=== PATIENT | male | born 1980 | race Caucasian/White ===

== ENCOUNTER 2020-10-11 11:57 | Emergency (ER) | payer MEDICAID ==
[~2020-10-11] VITALS: Ht 193 cm; Wt 95.5 kg
[~2020-10-11 11:57] MED LIST: ONDA4TAB12 PO
[2020-10-11] MEDS ORDERED: acetaminophen 325mg tablet PO ONE (13:15)
== END 2020-10-11 13:45 | disposition home or self-care (01) ==
LOC: ER 11:57
DX: R05 Cough (principal); R09.89 Other specified symptoms and signs involving the circulatory and respiratory systems; R51.9 Headache, unspecified; Z20.828 Contact with and (suspected) exposure to other viral communicable diseases; F12.90 Cannabis use, unspecified, uncomplicated; Z87.442 Personal history of urinary calculi; Z86.14 Personal history of Methicillin resistant Staphylococcus aureus infection; Z56.0 Unemployment, unspecified; Z79.899 Other long term (current) drug therapy
CPT/HCPCS: 36415; 87635; 99283

== ENCOUNTER 2021-03-13 06:25 | Emergency (ER) | payer MEDICAID ==
[~2021-03-13] VITALS: Ht 193 cm; Wt 100.0 kg
[2021-03-13] MEDS ORDERED: ketorolac trometh. 30mg/ml inj. IM ONE (06:45)
--- NOTE | 2021-03-13 07:00 | NUR ---
corporate claims examiner at bedside.
[2021-03-13] MEDS ORDERED: IBUP-1985 PO (07:55)
[2021-03-13 07:56] VITALS: BP 140/92
== END 2021-03-13 08:17 | disposition home or self-care (01) ==
LOC: ER 06:25
DX: S40.212A Abrasion of left shoulder, initial encounter (principal); M25.512 Pain in left shoulder; F12.90 Cannabis use, unspecified, uncomplicated; Z87.442 Personal history of urinary calculi; Z86.14 Personal history of Methicillin resistant Staphylococcus aureus infection; Z56.0 Unemployment, unspecified; Z79.899 Other long term (current) drug therapy; X58.XXXA Exposure to other specified factors, initial encounter; Y93.89 Activity, other specified; Y92.89 Other specified places as the place of occurrence of the external cause; Y99.8 Other external cause status
CPT/HCPCS: 73030; 96372; 99283; J1885

== ENCOUNTER 2021-04-25 01:17 | Emergency (ER) | payer MEDICAID ==
[~2021-04-25] VITALS: Ht 193 cm; Wt 90.9 kg
[~2021-04-25 01:17] MED LIST changes: +IBUP-1985 PO
[2021-04-25] MEDS ORDERED: diazepam inj 5 MG/ML inj. IV ONE (02:15)
[2021-04-25] MEDS ORDERED: morphine 4 MG/ML inj SYRINge IV ONE (02:25)
[2021-04-25 02:57] VITALS: BP 127/74
[2021-04-25] MEDS ORDERED: HYDR-3972 PO (04:38)
[2021-04-25] MEDS ORDERED: ORPH100T2 PO (04:38)
[2021-04-25] MEDS ORDERED: HYDROcodone/acetaminophen 10/325mg tab PO ONE (04:40)
[2021-04-25] MEDS ORDERED: diazepam 5mg tablet PO ONE (04:50)
== END 2021-04-25 05:16 | disposition home or self-care (01) ==
LOC: ER 01:17
DX: S29.012A Strain of muscle and tendon of back wall of thorax, initial encounter (principal); S30.0XXA Contusion of lower back and pelvis, initial encounter; M54.89 Other dorsalgia; F12.90 Cannabis use, unspecified, uncomplicated; Z86.14 Personal history of Methicillin resistant Staphylococcus aureus infection; Z87.442 Personal history of urinary calculi; Z56.0 Unemployment, unspecified; Z79.899 Other long term (current) drug therapy; W19.XXXA Unspecified fall, initial encounter; Y93.89 Activity, other specified; Y92.89 Other specified places as the place of occurrence of the external cause; Y99.8 Other external cause status
CPT/HCPCS: 72074; 96374; 96375; 99284; J2270; J3360

== ENCOUNTER 2022-05-09 08:22 | Emergency (ER) | payer MEDICAID ==
[~2022-05-09] VITALS: Ht 193 cm; Wt 90.9 kg
[~2022-05-09 08:22] MED LIST changes: +ORPH100T2 PO
--- NOTE | 2022-05-09 12:22 | NUR ---
Pt c/o laceration to right lower leg, noted dressing intact without oozing drainage.
[2022-05-09] MEDS ORDERED: acetaminophen 325mg tablet PO ONE (12:30)
[2022-05-09] MEDS ORDERED: ibuprofen tablet 400 MG TABLET PO ONE (12:30)
[2022-05-09] MEDS ORDERED: ceFAZolin 1gm IM kit IM ONE (12:40)
[2022-05-09] MEDS ORDERED: TETanus/Pertussis (Acell)/Diphther VAC/PF (Tdap-Adult) 0.5ml syringe IMVAC ONE (12:40)
[2022-05-09] MEDS ORDERED: CEPH250T PO (13:37)
[2022-05-09] MEDS ORDERED: NAPR-56 PO (13:38)
--- NOTE | 2022-05-09 14:27 | NUR ---
Pt given d/c instructions , verbalized understanding.
[2022-05-09 14:47] VITALS: BP 137/88
== END 2022-05-09 14:50 | disposition home or self-care (01) ==
LOC: ER 08:22
DX: S91.011A Laceration without foreign body, right ankle, initial encounter (principal); M76.61 Achilles tendinitis, right leg; F12.90 Cannabis use, unspecified, uncomplicated; Z59.00 Homelessness unspecified; W18.40XA Slipping, tripping and stumbling without falling, unspecified, initial encounter; Y93.89 Activity, other specified; Y92.89 Other specified places as the place of occurrence of the external cause; Y99.8 Other external cause status
CPT/HCPCS: 12001; 73610; 90471; 90715; 96372; 99284; J0690

== ENCOUNTER 2023-04-23 12:41 | Emergency (ER) | payer MEDICAID ==
[~2023-04-23] VITALS: Ht 193 cm; Wt 90.9 kg
[~2023-04-23 12:41] MED LIST changes: -ORPH100T2 PO; +ORPH100T4 PO
[2023-04-23 12:45] VITALS: BP 135/88
--- NOTE | 2023-04-23 13:16 | NUR ---
TC TO POISON CONTROL FOR ADVICE. PATIENT APPEARS TO HAVE INGESTED 1 GM OF METHAMPHETAMINE APPROX. 1.5 HOURS AGO. POISON CONTROL STATES THE FOLLOWING INFORMATION: ACTIVATED CHARCOAL NOW, CT OF ABDOMEN AND PELVIS TO CONFIRM INGESTION OF BAGGIE, IF POSITIVE, INITIATE BOWEL IRRIGATION WITH GOLYTELY AT RATE OF 1-2 LITERS PER HOUR VIA NG TUBE, IF NO BAGGIE IS IDENTIFIED, PATIENT SHOULD BE OBSERVED FOR 6 HOURS, TREAT SYMPTOMS OF METHAMPHETAMINE, REQUIRED WITH BENZODIAZEPINE. WATCH FOR SEIZURES AND ARRHYTHMIAS.
== END 2023-04-23 14:03 | disposition home or self-care (01) ==
LOC: ER 12:41
DX: F15.20 Other stimulant dependence, uncomplicated (principal); F12.90 Cannabis use, unspecified, uncomplicated; Z87.442 Personal history of urinary calculi; Z86.14 Personal history of Methicillin resistant Staphylococcus aureus infection; Z56.0 Unemployment, unspecified; Z79.899 Other long term (current) drug therapy; Z00.00 Encounter for general adult medical examination without abnormal findings
CPT/HCPCS: 99283; J7030; 99281

== ENCOUNTER 2025-02-27 18:54 | Emergency (ER) | payer MEDICAID ==
[~2025-02-27] VITALS: Ht 193 cm; Wt 95.8 kg
[~2025-02-27 18:54] MED LIST changes: +ONDA-243 PO; -ONDA4TAB12 PO
[2025-02-27 19:32] VITALS: BP 134/74; PULSE 86; RESP 16; O2SAT 98
--- NOTE | 2025-02-27 20:49 | RADIOLOGY REPORT ---
CLINICAL INDICATION: LACERATION, LOOKING FOR FOREIGN BODIES TECHNIQUE: 3 radiographic views of the facial bones were obtained. Comparison: None FINDINGS/IMPRESSION: There is 2 mm density within the soft tissues adjacent to the maxilla on the lateral view with 1 mm d ensity overlying the right mandible frontal view. No evidence of acute fracture. The visualized paranasal sinuses and mastoids are clear.
[2025-02-27] MEDS ORDERED: CIPR2.5D21 LEFTEYE (22:35)
--- NOTE | 2025-02-27 22:35 | Physician Documentation ---
History of Present Illness ~ Chief Complaint: Laceration Stated Complaint: LAC UNDER LT EYE Time Seen by MD: 21:11 OK to notify your PCP?: Yes Primary Medical Doctor: NONE Source: patient Mode of Arrival: POV Exam Limitations: no limitations HPI Mayco is a 44-year-old male who has a laceration under his left eyelid around the orbital around cm and a half in length. He was using a salt grinder which fell apart and struck him in the face. He also is having left eye pain and feels that there is something in it. No decreased vision. Bleeding controlled from the laceration on arrival. Tetanus vaccine up-to-date. Tetanus Within 5 Years: Yes Medication Reconciliation Allergies: Coded Allergies: No Known Allergies (Unverified , 02/27/25) Scheduled Ciprofloxacin Hcl Ophth* (Ciloxan 0.35 Ophth Drops*), 1 DROP LEFTEYE Q6H Orphenadrine Citrate (Norflex), 1 TAB PO Q12H PRN Scheduled PRN Ibuprofen (Ibuprofen), 1 TAB PO Q8H PRN for pain ONDANSETRON ODT 4mg tablet (Ondansetron Odt), 1 TABLET PO Q6H PRN for nausea/vomiting Past Medical History Past Medical History: Kidney Stones, MRSA Abscess Past Surgical History: no surgical history Alcohol Use: None Drug Use: marijuana Lives with: S/O Lives In: Home Occupation: unemployed Review of Systems All Other Systems at this time: Reviewed and Negative Physical Exam Vital Signs: RN Vital Signs have been reviewed: Yes, Temperature: 98.0, Source: Temporal, Heart Rate: 86, Respiratory Rate: 16, BP: 134/74, Pulse Oximetry: 98, Weight: 95.800 Oxygen Flow Rate: 0 Pulse Oximetry Reflects: adequate oxygenation Physical Exam General: Alert, no apparent distress. HEENT: PERRL, EOMI, no injection, moist mucous membranes. Left eye tearing with sclera and conjunctiva injected. No foreign body seen. Using fluorescein stain, small corneal abrasion underneath pupil. Neck: Full range of motion. Respiratory: Lungs clear, no respiratory distress. Chest: No accessory muscle use. Cardiovascular: Regular rate and rhythm, no murmurs. Extremities: Normal range of motion, no deformity. Neurologic: Oriented x4. Psychiatric: Normal mood and affect. Skin: Normal color, warm and dry. Approximately 1-1/2 cm superficial laceration to left lower orbital, edges well approximated, bleeding controlled. Procedures Laceration/Wound Repair Laceration : Location: left lower orbital Length (cm): 1.5 Anesthesia: none Prep: irrigated by nurse Margins: flaps aligned Foreign Body: not identified Repaired: skin Wound Repaired With: Dermabond Tolerated Procedure Well?: yes, no complications Progress Results/Orders Reviewed/noted all lab results: Yes Results/Orders Orders - REHANA CONTRERAS Facial Bones Complete (02/27/25 20:27) Laceration/I&D Tray Set Up (02/27/25 ) Dermabond To Bedside (02/27/25 ) Completed Orders - REHANA CONTRERAS Facial Bones Complete (02/27/25 20:27) Proparacaine Ophth Solution (Alcaine Oph (02/27/25 22:30) Ciprofloxacin Ophth Drops (Ciloxan 0.3% (02/27/25 22:30) Vital Signs 02/27/25 02/27/25 19:32 23:20 Temp 98.0 98.0 Pulse 86 Resp 16 B/P (MAP) 134/74 Pulse Ox 98 O2 Flow Rate 0 EKG/XRAY/CT/US/VASC/MRI Bone/Soft Tissue X-Ray (Ext.) : Additional Comment Facial bones x-ray as interpreted by me. No foreign body seen at the orbital or in the eye. To tiny foreign bodies noted in the maxilla and mandible. Multiple dental implants. Medical Decision Making Findings Mayco is a 44-year-old male with a laceration to his left orbital which I irrigated with saline and used Dermabond and was able to close successfully. His x-ray was negative for any foreign body in the laceration or in the eyeball itself. He does have multiple dental implants into tiny opaque item seen in his maxilla and mandible which were not appreciated on physical exam. He has no lacerations or skin openings of the mandible or maxilla. He was complaining of left eye pain for which I placed proparacaine drops and he had relief and fluorescein stain. Positive fluorescein uptake showed a small corneal abrasion below the pupil. He is aware that the Dermabond will fall off by itself within the next 5 days and he should not pick at it or use any ointments or gels as this can cause the glue to follow up sooner. He has been given ciprofloxacin prescription eyedrops for his corneal abrasion. Follow up with his primary care provider in the next 3 days and return back here for any new or worsening symptoms. He should monitor for signs or symptoms of infection as he may need an antibiotic prescribed and he agrees with this plan. Departure Disposition: HOME / SELF CARE / HOMELESS Impression: Primary Impression: Laceration Additional Impression: Corneal abrasion, left Condition: Stable Discharge Instructions: Corneal Abrasion, [id number] Additional Instructions: Please use the eyedrops to the left eye as directed. Follow up with her primary care provider in the next 3 days and return back here for any new or worsening symptoms. Please do not pick at the skin glue as it should fall off by itself within the next 5 days. If there is any signs of infection such as redness, warmth, fevers, purulent discharge please be seen as you may need an antibiotic for this. Departure Forms: Excuse form Work or School Excuse beginning now through the following date: March 01, 2025 Referrals: NO PRIMARY CARE PROVIDER (PCP) Prescriptions Ciprofloxacin Hcl Ophth* (Ciloxan 0.35 Ophth Drops*) 2.5 Ml Bottle 1 DROP LEFTEYE Q6H for 7 Days, #5 ML Prov: REHANA CONTRERAS 02/27/25 Education Educated: Patient, Family Educated regarding: diagnosis, treatment, prognosis, need for follow up Signature Scribe Signature: . Attestation: Scribed for Rehaan Contreras by Rehana Hutton NP . 02/27/25 23:56 REHANA CONTRERAS February 27, 2025 22:35
[2025-02-27] MEDS: proparacaine 0.5% ophthalmic drops 15ml LEFTEYE ONE (23:18)
[2025-02-27] MEDS: ciprofloxacin 0.3% 2.5ml ophthalmic solution LEFTEYE ONE (23:18)
[2025-02-27 23:20] VITALS: TEMP 98
== END 2025-02-27 23:25 | disposition home or self-care (01) ==
LOC: ER 18:55
DX: S01.112A Laceration without foreign body of left eyelid and periocular area, initial encounter (principal); S05.02XA Injury of conjunctiva and corneal abrasion without foreign body, left eye, initial encounter; W19.XXXA Unspecified fall, initial encounter; Y93.89 Activity, other specified; Y92.89 Other specified places as the place of occurrence of the external cause; Y99.8 Other external cause status
CPT/HCPCS: 12011; 70150; 99283